=== PATIENT | male | born 1955 | race Two or more races ===

== ENCOUNTER 2019-02-04 23:48 | Emergency (ER) | payer OTHER ==
[~2019-02-04] VITALS: Ht 162.6 cm; Wt 63.5 kg
--- NOTE | 2019-02-04 23:57 | NUR ---
PT BIBSELF C/C NON RADIATING CP X 4 DAYS S/P SNEEZING AND "FEEL SOMETHING STUCK". -N/V, -SOB. PT AMBULATORY. NAD NOTED. RESP EVEN AND UNLABORED. PT AOX4. PT ON MONITOR IN BED 5. WILL CONTINUE TO MONITOR.
[2019-02-05] MEDS ORDERED: LABETALOL 20 MG/4 ML VIAL IV ONE (00:30)
--- NOTE | 2019-02-05 00:32 | NUR ---
RADIOLOGY AT BEDSIDE FOR XRAY
[2019-02-05 00:35] LABS: BASOPHILS % (AUTO) 0.4 % (0.0-2.0); EOSINOPHILS % (AUTO) 3.4 % (0.0-6.0); HEMATOCRIT 46 % (39-51); HEMOGLOBIN 15.6 g/dL (13.5-17.5); LYMPHOCYTES # (AUTO) 1.6 /CMM (0.8-4.8); LYMPHOCYTES % (AUTO) 23.5 % (20.0-44.0); MEAN CORPUSCULAR HGB CONC 34 g/dl (31.0-36.0); MEAN CORPUSCULAR VOLUME 89 fL (80-96); MONOCYTES # (AUTO) 0.6 /CMM (0.1-1.30); MONOCYTES % (AUTO) 8.8 % (2.0-12.0); NEUTROPHILS # (AUTO) 4.3 /CMM (1.8-8.9); NEUTROPHILS % (AUTO) 63.9 % (43.0-81.0); PLATELET COUNT (AUTO) 186 /CMM (150-450); RED BLOOD CELL COUNT(AUTO) 5.22 MIL/uL (4.5-6.0); WHITE BLOOD COUNT (AUTO) 6.8 K/uL (4.3-11.0)
--- NOTE | 2019-02-05 00:40 | NUR ---
TECH AT BEDSIDE FOR EKG
[2019-02-05 00:41] LABS: CALCIUM, SERUM 8.3 mg/dL (8.5-10.1); CREATININE 1.1 mg/dL (0.6-1.3); POTASSIUM 3.1 mmol/L (3.5-5.1)
[2019-02-05 00:47] LABS: ALBUMIN 3.7 g/dL (3.4-5.0); BILIRUBIN,TOTAL 0.6 mg/dL (0.2-1.0); TOTAL PROTEIN, SERUM 7.2 g/dL (6.4-8.2)
[2019-02-05] MEDS ORDERED: KETOROLAC TROMETHAMINE 15 MG/ML VIAL ONE (00:53)
[2019-02-05] MEDS ORDERED: LABETALOL HCL IV 100MG VIAL ONE (00:53)
[2019-02-05] MEDS ORDERED: KETOROLAC TROMETHAMINE INJ 30 MG/ML VIAL IV ONE (01:00)
--- NOTE | 2019-02-05 01:10 | NUR ---
TECH AT BEDSIDE FOR EKG
[2019-02-05] MEDS ORDERED: POTASSIUM CHLORIDE 20 MEQ TAB.PRT.SR PO ONE ×2 (01:30→01:41)
--- NOTE | 2019-02-05 03:16 | NUR ---
CALLED [facility], SPOKE TO ZANE REGARDING PENDING XR'S
[2019-02-05 04:03] VITALS: BP 149/96
--- NOTE | 2019-02-05 04:31 | NUR ---
IV removed. Catheter intact and site benign. Pressure and 4x4 applied to site. No bleeding noted.Patient discharged to home in stable condition. Written and verbal after care instructions given. Patient verbalizes understanding of instruction. PT AMBULATORY WITH STEADY GAIT.
== END 2019-02-05 04:33 | disposition home or self-care (01) ==
LOC: ER 23:48
DX: R07.89 Other chest pain (principal); E87.6 Hypokalemia; I16.0 Hypertensive urgency; Z90.89 Acquired absence of other organs; Z98.890 Other specified postprocedural states
CPT/HCPCS: 36415; 71045; 80053; 83690; 84484 ×2; 85025; 85378; 93005 ×3; 96374; 96375; 99284; J1885; J3490 ×2